=== PATIENT | male | born 1975 | race African-American/Black ===

== ENCOUNTER 2016-12-21 11:38 | Emergency (ER) | payer SELFPAY ==
[~2016-12-21] VITALS: Ht 190.5 cm; Wt 110.0 kg
[2016-12-21] MEDS ORDERED: CLONIDINE0.1 MG PO ×2 (12:35→15:19)
[2016-12-21] MEDS ORDERED: NORVASC5 M1 PO (12:35)
[2016-12-21 12:49] LABS: HEMATOCRIT 43.3 % (39.0-50.0); HEMOGLOBIN 13.8 g/dl (14.0-18.0); IMMATURE GRANULOCYTES 0.3 % (0.0-1.0); MEAN CELL VOLUME 73.1 fL CALC (80.0-100.0); MEAN CORPUSCULAR HGB 23.3 pG CALC (26.0-32.0); MEAN CORPUSCULAR HGB CONC 31.9 g/L CALC (32.0-36.0); NEUT# 3.25 thou/uL (1.82-7.42); RED BLOOD COUNT 5.92 mill/uL (4.70-6.10); RED CELL DISTRI WIDTH 16.1 % (11.5-15.5)
[2016-12-21 12:58] LABS: ALBUMIN 4.1 g/dL (3.2-5.0); ALKALINE PHOSPHATASE 62 u/l (38-126); ANION GAP 11 (6-22 (CALC)); BILIRUBIN, TOTAL 0.6 mg/dL (0.0-1.4); BUN 10 mg/dL (9-20); BUN/CREATININE RATIO 11 (12-20 (CALC)); CARBON DIOXIDE 30 mmol/l (22-30); CHLORIDE 107 mmol/l (95-108); GFR > 60 ML/MIN (>=60 (CALC)); GFR FOR AFR.AMER. > 60 ML/MIN (>=60 (CALC)); GLUCOSE 82 mg/dL (75-110); SGOT/AST 27 u/l (17-59); SGPT/ALT 41 u/l (21-72); SODIUM 144 mmol/l (137-146)
[2016-12-21] MEDS ORDERED: AMLODIPINE5 MG PO (15:19)
[2016-12-21 15:26] VITALS: BP 155/96
== END 2016-12-21 15:24 | disposition home or self-care (01) | DRG 305 ==
LOC: ED 11:38
PROVIDERS: Emergency Medicine
DX: I16.0 Hypertensive urgency (principal); R42 Dizziness and giddiness; R51 Headache

== ENCOUNTER 2020-02-04 13:40 | Emergency (ER) | payer OTHER ==
[~2020-02-04] VITALS: Ht 190.5 cm; Wt 118.0 kg
[~2020-02-04 13:40] MED LIST: AMLODIPINE5 MG PO; CLONIDINE0.1 MG PO; NORVASC5 M1 PO
[2020-02-04] MEDS ORDERED: HYDROCHLOROTH12.5 MG PO (14:00)
[2020-02-04 14:07] LABS: HEMATOCRIT 44.5 % (39.0-50.0); IMMATURE GRANULOCYTES 0.4 % (0.0-5.0); MEAN CELL VOLUME 73.6 fL CALC (80.0-100.0); MEAN CORPUSCULAR HGB 23.1 pG CALC (26.0-32.0); MEAN CORPUSCULAR HGB CONC 31.5 g/dL CAL (32.0-36.0); NEUT# 3.6 thou/uL (1.82-7.42); RED BLOOD COUNT 6.05 mill/uL (4.70-6.10); RED CELL DISTRI WIDTH 15.5 % (11.5-15.5)
[2020-02-04 14:23] LABS: ANION GAP 7 (6-22 (CALC)); BUN 10 mg/dL (9-20); BUN/CREATININE RATIO 10 (12-20 (CALC)); CARBON DIOXIDE 30 mmol/l (22-30); CHLORIDE 108 mmol/l (95-108); GFR > 60 ML/MIN (>=60 (CALC)); GFR FOR AFR.AMER. > 60 ML/MIN (>=60 (CALC)); SODIUM 142 mmol/l (137-146)
[2020-02-04] MEDS ORDERED: HYDROCHLOROT12.5 M1 PO (15:05)
[2020-02-04] MEDS ORDERED: AMLODIPINE BESY10 MG PO (15:05)
[2020-02-04 15:46] VITALS: BP 142/69
== END 2020-02-04 15:52 | disposition home or self-care (01) ==
LOC: ED 13:40
PROVIDERS: Family Medicine
DX: I10 Essential (primary) hypertension (principal); T46.5X6A Underdosing of other antihypertensive drugs, initial encounter; Z91.128 Patient's intentional underdosing of medication regimen for other reason; J45.909 Unspecified asthma, uncomplicated; F17.210 Nicotine dependence, cigarettes, uncomplicated

== ENCOUNTER 2020-09-24 17:11 | Emergency (ER) | payer OTHER ==
[~2020-09-24 17:11] MED LIST changes: +AMLODIPINE BESY10 MG PO; +HYDROCHLOROT12.5 M1 PO; +HYDROCHLOROTH12.5 MG PO
[2020-09-24 17:44] LABS: HEMATOCRIT 43.4 % (39.0-50.0); HEMOGLOBIN 13.5 g/dl (14.0-18.0); IMMATURE GRANULOCYTES 0.2 % (0.0-5.0); MEAN CELL VOLUME 71.5 fL CALC (80.0-100.0); MEAN CORPUSCULAR HGB 22.2 pG CALC (26.0-32.0); MEAN CORPUSCULAR HGB CONC 31.1 g/dL CAL (32.0-36.0); NEUT# 8.67 thou/uL (1.82-7.42); RED BLOOD COUNT 6.07 mill/uL (4.70-6.10); RED CELL DISTRI WIDTH 17.8 % (11.5-15.5)
[2020-09-24 18:02] LABS: ALBUMIN 4.5 g/dL (3.2-5.0); ALKALINE PHOSPHATASE 71 u/l (38-126); AMYLASE 85 u/l (30-110); ANION GAP 13 (6-22 (CALC)); BILIRUBIN, TOTAL 0.5 mg/dL (0.0-1.4); BUN 7 mg/dL (9-20); BUN/CREATININE RATIO 9 (12-20 (CALC)); CARBON DIOXIDE 24 mmol/l (22-30); CHLORIDE 102 mmol/l (95-108); CREATININE 0.8 mg/dL (0.7-1.3); GFR > 60 ML/MIN (>=60 (CALC)); GFR FOR AFR.AMER. > 60 ML/MIN (>=60 (CALC)); LIPASE 86 u/l (23-300); POTASSIUM 3.8 mmol/l (3.5-5.1); SGOT/AST 25 u/l (17-59); SODIUM 136 mmol/l (137-146); TOTAL PROTEIN 8.5 g/dL (6.3-8.2)
[2020-09-24 18:14] LABS: MYOGLOBIN 39 ng/mL (0 - 121)
[2020-09-24 19:47] LABS: URINE BILIRUBIN - DIPSTICK NEGATIVE (NEGATIVE); URINE BLOOD DIPSTICK TRACE-INTACT (NEGATIVE); URINE COLOR YELLOW; URINE GLUCOSE - DIPSTICK NEGATIVE (NEGATIVE); URINE KETONE NEGATIVE (NEGATIVE); URINE LEUK ESTERASE NEGATIVE (NEGATIVE); URINE NITRITE - DIPSTICK NEGATIVE (Negative); URINE PROTEIN - DIPSTICK TRACE mg/dL (NEG-TRACE); URINE SPECIFIC GRAVITY 1.015; URINE UROBILINOGEN - DIPSTICK 0.2 E.U./dL (0.2)
[2020-09-24] MEDS ORDERED: ZOFRAN4 MG/TAB PO (19:58)
[2020-09-24 20:45] VITALS: BP 138/74
== END 2020-09-24 20:45 | disposition home or self-care (01) ==
LOC: ED 17:11
PROVIDERS: Emergency Medicine
DX: A08.4 Viral intestinal infection, unspecified (principal); I10 Essential (primary) hypertension; J45.909 Unspecified asthma, uncomplicated; F17.200 Nicotine dependence, unspecified, uncomplicated
CPT/HCPCS: Q9967

== ENCOUNTER 2020-11-13 18:57 | Emergency (ER) | payer OTHER ==
[~2020-11-13] VITALS: Ht 190.5 cm; Wt 120.0 kg
[~2020-11-13 18:57] MED LIST changes: +ZOFRAN4 MG/TAB PO
[2020-11-13 19:49] LABS: HEMATOCRIT 42.9 % (39.0-50.0); HEMOGLOBIN 13.2 g/dl (14.0-18.0); IMMATURE GRANULOCYTES 0.1 % (0.0-5.0); MEAN CELL VOLUME 73.7 fL CALC (80.0-100.0); MEAN CORPUSCULAR HGB 22.7 pG CALC (26.0-32.0); MEAN CORPUSCULAR HGB CONC 30.8 g/dL CAL (32.0-36.0); NEUT# 3.99 thou/uL (1.82-7.42); RED BLOOD COUNT 5.82 mill/uL (4.70-6.10); RED CELL DISTRI WIDTH 17.7 % (11.5-15.5)
[2020-11-13 20:25] LABS: ALBUMIN 4.2 g/dL (3.2-5.0); ALKALINE PHOSPHATASE 75 u/l (38-126); ANION GAP 10 (6-22 (CALC)); BILIRUBIN, TOTAL 0.4 mg/dL (0.0-1.4); BUN 9 mg/dL (9-20); BUN/CREATININE RATIO 11 (12-20 (CALC)); CARBON DIOXIDE 27 mmol/l (22-30); CHLORIDE 107 mmol/l (95-108); CREATININE 0.9 mg/dL (0.7-1.3); GFR > 60 ML/MIN (>=60 (CALC)); GFR FOR AFR.AMER. > 60 ML/MIN (>=60 (CALC)); POTASSIUM 3.9 mmol/l (3.5-5.1); SGOT/AST 29 u/l (17-59); SODIUM 140 mmol/l (137-146); TOTAL PROTEIN 7.6 g/dL (6.3-8.2)
[2020-11-13 20:37] LABS: MYOGLOBIN 46 ng/mL (0 - 121)
[2020-11-13 20:51] LABS: URINE BILIRUBIN - DIPSTICK NEGATIVE (NEGATIVE); URINE BLOOD DIPSTICK NEGATIVE (NEGATIVE); URINE COLOR YELLOW; URINE GLUCOSE - DIPSTICK NEGATIVE (NEGATIVE); URINE KETONE NEGATIVE (NEGATIVE); URINE LEUK ESTERASE NEGATIVE (NEGATIVE); URINE PROTEIN - DIPSTICK NEGATIVE (NEG-TRACE); URINE UROBILINOGEN - DIPSTICK 0.2 E.U./dL (0.2)
[2020-11-13 20:52] LABS: URINE NITRITE - DIPSTICK NEGATIVE (Negative)
[2020-11-13] MEDS ORDERED: MECLIZINE25 MG PO (20:55)
[2020-11-13] MEDS ORDERED: ONDANSETRON4 MG PO (20:55)
[2020-11-13] MEDS ORDERED: AMOXICILLIN500 MG PO (20:59)
[2020-11-13] MEDS ORDERED: MEDDOSEPAK PO (20:59)
[2020-11-13 21:01] VITALS: BP 167/97
== END 2020-11-13 21:02 | disposition home or self-care (01) ==
LOC: ED 18:57
PROVIDERS: Emergency Medicine
DX: R42 Dizziness and giddiness (principal); J02.9 Acute pharyngitis, unspecified; I10 Essential (primary) hypertension; J45.909 Unspecified asthma, uncomplicated; F17.210 Nicotine dependence, cigarettes, uncomplicated; Z20.822 Contact with and (suspected) exposure to COVID-19

== ENCOUNTER 2023-10-02 20:15 | Inpatient (IN) | payer OTHER ==
[~2023-10-02] VITALS: Ht 188 cm; Wt 122.0 kg
[2023-10-02] VITALS (18 sets, daily range): BP systolic 116–136; BP diastolic 81–95
[~2023-10-02 20:15] MED LIST changes: +AMOXICILLIN500 MG PO; +MECLIZINE25 MG PO; +MEDDOSEPAK PO; +ONDANSETRON4 MG PO
[2023-10-02] MEDS ORDERED: ASPIRIN 81 MG/TAB PO ONE (20:25)
[2023-10-02] MEDS ORDERED: SODIUM CHLORIDE 0.9% 1,000 ML IV ONE (20:25)
[2023-10-02] MEDS ORDERED: dilTIAZem HCL 50 MG/10 ML SDV IV ONE (20:25)
[2023-10-02] MEDS ORDERED: ASPIRINCHW 81MG PO (20:39)
[2023-10-02] MEDS ORDERED: VENTOLIN HFA108 MCG IN (20:39)
[2023-10-02] MEDS ORDERED: ATORVASTATIN CA10 MG PO (20:40)
[2023-10-02] MEDS ORDERED: HYDROCHLOROT25 MG PO (20:41)
[2023-10-02] MEDS ORDERED: COZAAR50 MG PO (20:42)
[2023-10-02] MEDS ORDERED: METFORMIN500 M2 PO (20:42)
[2023-10-02 20:44] LABS: BASO% 0.6 % (0-3); EOS% 5.9 % (0-8); HEMATOCRIT 39.9 % (39.0-50.0); HEMOGLOBIN 12.3 g/dl (14.0-18.0); IMMATURE GRANULOCYTES 0.1 % (0.0-5.0); LYMPH% 42.4 % (15-41); MEAN CELL VOLUME 70.7 fL CALC (80.0-100.0); MEAN CORPUSCULAR HGB 21.8 pG CALC (26.0-32.0); MEAN CORPUSCULAR HGB CONC 30.8 g/dL CAL (32.0-36.0); MONO% 9.6 % (2-13); NEUT# 3.61 thou/uL (1.82-7.42); NEUT% 41.4 % (42-76); RED BLOOD COUNT 5.64 mill/uL (4.70-6.10); RED CELL DISTRI WIDTH 15.5 % (11.5-15.5)
[2023-10-02 20:58] LABS: D-DIMER 0.22 mg/L (0.19-0.60)
[2023-10-02 21:01] LABS: ALBUMIN 4.2 g/dL (3.2-5.0); ALKALINE PHOSPHATASE 86 u/l (38-126); ANION GAP 8 (6-22 (CALC)); BILIRUBIN, TOTAL 0.4 mg/dL (0.2-1.3); BUN 13 mg/dL (9-20); BUN/CREATININE RATIO 13 (12-20 (CALC)); CARBON DIOXIDE 30 mmol/l (22-30); CHLORIDE 107 mmol/l (95-108); ESTIMATED GFR 92 ML/MIN (>=90 (CALC)); MAGNESIUM 1.8 mg/dL (1.6-2.3); SGOT/AST 40 u/l (17-59); SODIUM 142 mmol/l (137-146); TOTAL PROTEIN 7.5 g/dL (6.3-8.2)
[2023-10-02 21:04] LABS: ACT PARTIAL THROMBO TIME 24.7 SECONDS (20.0-32.5); INTERNATIONAL NORMALIZED RATIO 1.1 RATIO (0.7-1.3); POTASSIUM 3.4 mmol/l (3.5-5.1)
[2023-10-02 21:07] LABS: PROTHROMBIN TIME 10.8 SECONDS (9.0-12.5)
[2023-10-02] MEDS ORDERED: DILTIAZEM HCL 125 MG in SODIUM CHLORIDE 0.9% 100 ML IV ONE (21:25)
[2023-10-02] MEDS ORDERED: SODIUM CHLORIDE 0.9% 500 ML IV ONE (21:25)
[2023-10-02 21:31] LABS: TSH, 3RD GENERATION 4.61 uIU/mL (0.47 - 4.68)
[2023-10-02 22:17] LABS: URINE BILIRUBIN - DIPSTICK Negative (NEGATIVE); URINE BLOOD DIPSTICK Negative (NEGATIVE); URINE GLUCOSE - DIPSTICK Negative (NEGATIVE); URINE KETONE Negative (NEGATIVE); URINE LEUK ESTERASE Negative (NEGATIVE); URINE NITRITE - DIPSTICK Negative (Negative); URINE PROTEIN - DIPSTICK Negative (NEG-TRACE); URINE SPECIFIC GRAVITY 1.025
[2023-10-02 22:18] LABS: URINE COLOR Yellow
[2023-10-02] MEDS ORDERED: ONDANSETRON HCl 4 MG/2 ML SDV IV PRN (22:55)
[2023-10-02] MEDS ORDERED: MAGNESIUM HYDROXIDE 30 ML UDC PO PRN (22:55)
[2023-10-02] MEDS ORDERED: FAMOTIDINE 10MG/ML 2ML SDV IV PRN (22:55)
[2023-10-02] MEDS ORDERED: IBUPROFEN 800 MG/TAB PO PRN (22:55)
[2023-10-02] MEDS ORDERED: ALUM & MAG HYDROX-SIMETHICONE 30 ML PO PRN (22:55)
[2023-10-02] MEDS ORDERED: ONDANSETRON 4 MG/TAB ODT PO PRN (22:55)
[2023-10-02] MEDS ORDERED: ENOXAPARIN SODIUM 100 MG/ML SYR SC SCH (23:00)
[2023-10-03] VITALS (32 sets, daily range): BP systolic 105–139; BP diastolic 62–100
[2023-10-03] MEDS ORDERED: DILTIAZEM HCL 125 MG in SODIUM CHLORIDE 0.9% 100 ML IV PRN (01:00)
[2023-10-03 03:03] LABS: BASO% 0.4 % (0-3); EOS% 5.1 % (0-8); HEMATOCRIT 37.3 % (39.0-50.0); HEMOGLOBIN 11.7 g/dl (14.0-18.0); IMMATURE GRANULOCYTES 0.1 % (0.0-5.0); LYMPH% 45.2 % (15-41); MEAN CELL VOLUME 70.5 fL CALC (80.0-100.0); MEAN CORPUSCULAR HGB 22.1 pG CALC (26.0-32.0); MEAN CORPUSCULAR HGB CONC 31.4 g/dL CAL (32.0-36.0); MONO% 6.6 % (2-13); NEUT# 3.39 thou/uL (1.82-7.42); NEUT% 42.6 % (42-76); RED BLOOD COUNT 5.29 mill/uL (4.70-6.10); RED CELL DISTRI WIDTH 15.7 % (11.5-15.5)
[2023-10-03 03:14] LABS: ALBUMIN 3.6 g/dL (3.2-5.0); BILIRUBIN, TOTAL 0.4 mg/dL (0.2-1.3); CHOLESTEROL HDL RATIO 3.1 (<4.4 (CALC)); CREATININE 0.8 mg/dL (0.7-1.3); MAGNESIUM 1.7 mg/dL (1.6-2.3); POTASSIUM 3.4 mmol/l (3.5-5.1); TOTAL PROTEIN 6.6 g/dL (6.3-8.2)
[2023-10-03] MEDS ORDERED: ACETAMINOPHEN 325 MG/TAB PO PRN (05:50)
[2023-10-03] MEDS ORDERED: MAGNESIUM HYDROXIDE 30 ML UDC PO PRN (05:50)
[2023-10-03] MEDS ORDERED: IPRATROPIUM BROMIDE 0.5 MG/2.5 ML SOL IN PRN (06:00)
[2023-10-03] MEDS ORDERED: LEVALBUTEROL HCL 1.25 MG/3 ML VIAL NEB PRN (06:05)
[2023-10-03] MEDS ORDERED: METOPROLOL TARTRATE 25 MG/TAB PO SCH (09:00)
[2023-10-03] MEDS ORDERED: POTASSIUM CHLORIDE 20 MEQ/TAB PO SCH (09:00)
[2023-10-03] MEDS ORDERED: ASPIRIN 81 MG/TAB PO SCH (09:00)
[2023-10-03] MEDS ORDERED: APIXABAN BASE 5 MG TAB PO SCH (21:00)
[2023-10-04] VITALS (7 sets, daily range): BP systolic 118–139; BP diastolic 77–96
[2023-10-04 06:11] LABS: BASO% 0.5 % (0-3); EOS% 9.2 % (0-8); HEMATOCRIT 40.2 % (39.0-50.0); HEMOGLOBIN 12.9 g/dl (14.0-18.0); IMMATURE GRANULOCYTES 0.1 % (0.0-5.0); LYMPH% 44.9 % (15-41); MEAN CORPUSCULAR HGB 22.8 pG CALC (26.0-32.0); MEAN CORPUSCULAR HGB CONC 32.1 g/dL CAL (32.0-36.0); NEUT# 2.72 thou/uL (1.82-7.42); NEUT% 35.3 % (42-76); RED BLOOD COUNT 5.66 mill/uL (4.70-6.10); RED CELL DISTRI WIDTH 15.7 % (11.5-15.5)
[2023-10-04] MEDS ORDERED: ELIQUIS5 MG PO (06:30)
[2023-10-04] MEDS ORDERED: LOPRESSOR25 MG PO (06:30)
[2023-10-04 06:32] LABS: ALBUMIN 3.8 g/dL (3.2-5.0); BILIRUBIN, TOTAL 0.4 mg/dL (0.2-1.3); CREATININE 0.8 mg/dL (0.7-1.3); POTASSIUM 4.3 mmol/l (3.5-5.1); TOTAL PROTEIN 6.9 g/dL (6.3-8.2)
[2023-10-04] MEDS ORDERED: PNEUMOCOCCAL 20-VALENT CONJUGA 0.5 ML/DOSE INJ IM SCH (09:00)
== END 2023-10-04 12:30 | DRG 310 ==
LOC: ED 20:15 → ED-I 22:30 → ED 22:55 → ICU 22:56
PROVIDERS: Family Medicine; ADMIT Student in an Organized Health Care Education/Training Program; ATTEND Student in an Organized Health Care Education/Training Program
PROC: 3E0234Z Introduction of Serum, Toxoid and Vaccine into Muscle, Percutaneous Approach (ICD-10-PCS; principal; 2023-10-04)
DX: I48.91 Unspecified atrial fibrillation (principal); I10 Essential (primary) hypertension; E11.9 Type 2 diabetes mellitus without complications; E78.5 Hyperlipidemia, unspecified; J45.909 Unspecified asthma, uncomplicated; Z87.891 Personal history of nicotine dependence; Z79.84 Long term (current) use of oral hypoglycemic drugs; Z23 Encounter for immunization
CPT/HCPCS: J1650